=== PATIENT | female | born 1985 | race American Indian/Alaskan Native ===

== ENCOUNTER 2018-04-03 17:49 | Emergency (ER) | payer MEDICAID ==
[2018-04-03 18:33] VITALS: BP 129/74
[2018-04-03] MEDS ORDERED: cefTRIAXone 250 MG, Lidocaine 1% 0.9 ML IM ONE ×2 (20:12)
[2018-04-03] MEDS ORDERED: Azithromycin 250 MG Tab PO ONE (20:12)
--- NOTE | 2018-04-03 20:25 | EDM.PDOC ---
ED HPI GENERAL MEDICAL PROBLEM - General Chief Complaint: Back Pain or Injury Stated Complaint: [id number]- FELL DOWN STAIRS- URINATING BLOOD Time Seen by Provider: 04/03/18 19:10 Source of Information: Reports: Patient History Limitations: Reports: No Limitations - History of Present Illness INITIAL COMMENTS - FREE TEXT/NARRATIVE: C/o pain to buttocks, Has had burning with urination and thought noticed blood in urine. No numbness. No loss of bowel or bladder control. 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 LMP May 23 Social & Family History - Tobacco Use Smoking Status *Q: Never Smoker - Recreational Drug Use Recreational Drug Use: No - Living Situation & Occupation Living situation: Reports: , with Family ED ROS GENERAL - Review of Systems Review Of Systems: ROS reveals no pertinent complaints other than HPI. ED EXAM,LOWER BACK PAIN/INJURY - Physical Exam Exam: See Below Exam Limited By: No Limitations General Appearance: Alert, Mild Distress Eye Exam: Bilateral Eye: EOMI Ears: Normal External Exam Nose: Normal Inspection Throat/Mouth: Normal Inspection Head: Atraumatic, Normocephalic Neck: Normal Inspection Respiratory/Chest: No Respiratory Distress, Lungs Clear, Normal Breath Sounds Cardiovascular: Normal Peripheral Pulses, Regular Rate, Rhythm GI/Abdominal: Soft Back Exam: Full Range of Motion, Other (tender coccyx. ) Extremities: Normal Range of Motion Neurological: Alert, Oriented x 3 Skin Exam: Warm, Dry Course - Vital Signs Last Recorded V/S: Last Vital Signs Temp 98.8 F 04/03/18 18:32 Pulse 18 L 04/03/18 18:32 Resp 18 04/03/18 18:32 BP 129/74 04/03/18 18:32 Pulse Ox 99 04/03/18 18:32 - Orders/Labs/Meds Orders: Active Orders 24 hr Category Date Time Status CHLAMYDIA AND GONORRHEA BY [facility] Routine Lab 04/03/18 18:36 Received Labs: Laboratory Tests 04/03/18 Range/Units 18:32 Urine Color Dark yellow (YELLOW) Urine Appearance Cloudy (CLEAR) Urine pH 7.0 (5.0-9.0) Ur Specific [place] 1.025 (1.005-1.030) Urine Protein 30 H (NEGATIVE) Urine Glucose (UA) Negative (NEGATIVE) Urine Ketones Negative (NEGATIVE) Urine Occult Blood Negative (NEGATIVE) Urine Nitrite Negative (NEGATIVE) Urine Bilirubin Negative (NEGATIVE) Urine Urobilinogen 0.2 (0.2-1.0) mg/dL Ur Leukocyte Esterase Negative (NEGATIVE) Urine RBC 0-5 /HPF Urine WBC 5-10 H (0-5/HPF) /HPF Ur Epithelial Cells Many H /HPF Urine Bacteria Many H (0-FEW/HPF) /HPF Urine Other See note Urine Trichomonas Present H (0/HPF) /HPF Meds: Medications Discontinued Medications Generic Name Dose Route Start Last Admin Trade Name Jonesq PRN Reason Stop Dose Admin Azithromycin 1,000 mg 04/03/18 20:12 04/03/18 20:31 Zithromax PO 04/03/18 20:13 1,000 mg ONETIME ONE Administration Ceftriaxone Sodium 250 mg/ 0 mg 04/03/18 20:12 04/03/18 20:30 Lidocaine HCl 0.9 ml IM 04/03/18 20:13 250 inj ONETIME ONE Administration Departure - Departure Time of Disposition: 20:20 Disposition: Home, Self-Care 01 Condition: Good Clinical Impression: BV (bacterial vaginosis), Trichimoniasis Tailbone injury Qualifiers: Encounter type: initial encounter Qualified Code(s): S39.92XA - Unspecified injury of lower back, initial encounter - Discharge Information Instructions: Bacterial Vaginosis, Tailbone Injury, [id number] Referrals: Karol Garcia NP [Primary Care Provider] - Forms: ED Department Discharge Additional Instructions: avoid direct sitting on tailbone urgent follow up if weakness or loss of control of laisha or bladder increase fluid intake ibuprofen 600mg every 6 hours as needed may alternate with tylenol flagyl 2 gram one time dose recheck in one month sooner if worsening symptoms - My Orders Last 24 Hours: My Active Orders 04/03/18 18:36 CHLAMYDIA AND GONORRHEA BY [facility] Routine - Assessment/Plan Last 24 Hours: My Active Orders 04/03/18 18:36 CHLAMYDIA AND GONORRHEA BY [facility] Routine
== END 2018-04-03 20:46 | disposition home or self-care (01) ==
LOC: DL.ED 17:49
DX: S39.92XA Unspecified injury of lower back, initial encounter (principal); A59.01 Trichomonal vulvovaginitis; N76.0 Acute vaginitis; Z88.1 Allergy status to other antibiotic agents; Z88.5 Allergy status to narcotic agent; Z88.0 Allergy status to penicillin; W10.9XXA Fall (on) (from) unspecified stairs and steps, initial encounter
CPT/HCPCS: 81001; 87491; 87591; 96372; 99283; A9270; J0696

== ENCOUNTER 2024-05-14 18:52 | Emergency (ER) | payer BC, MEDICAID, OTHER ==
[~2024-05-14 18:52] MED LIST: Morphine 4 MG/ML Syringe IVPUSH ONE; Ondansetron 4 MG/2 ML SDV IVPUSH ONE; Sodium Chloride 0.9% 10 ML Syringe FLUSH PRN; ceFAZolin 2 GM Vial IVPUSH ONE
[2024-05-14] MEDS ORDERED: Ondansetron 4 MG/2 ML SDV IV ONE (18:53)
[2024-05-14] MEDS ORDERED: Ondansetron 4 MG/2 ML SDV ONE (18:53)
[2024-05-14] MEDS ORDERED: Morphine 4 MG/ML Syringe ONE (18:53)
[2024-05-14] MEDS ORDERED: Ketorolac 30 MG/ML SDV IVPUSH ONE (18:53)
[2024-05-14] MEDS ORDERED: Ropivacaine 100 ML EPIDUR ONE (18:53)
[2024-05-14] MEDS ORDERED: Morphine 4 MG/ML Syringe IV ONE (18:53)
[2024-05-14] MEDS ORDERED: Propofol 200 MG/20 ML SDV IV ONE (18:53)
[2024-05-14] MEDS ORDERED: Sodium Chloride 0.9% 10 ML Syringe IV ONE (18:53)
[2024-05-14] MEDS ORDERED: Sodium Chloride 0.9% 1,000 ML IV SCH ×2 (19:00→22:30)
[2024-05-14 19:01] LABS: BASOPHILS PERCENT AUTO 0.3 % (0.0-1.0); EOSINOPHILS PERCENT AUTO 1.5 % (1.0-3.0); HEMATOCRIT 42.4 % (37.0-47.0); HEMOGLOBIN 14.5 g/dL (12.0-16.0); LYMPHOCYTES PERCENT AUTO 18.7 % (20.5-50.1); MEAN CORPUSCULAR HEMOGLOBIN 30.9 pg (27.0-34.0); MEAN CORPUSCULAR HGB CONC 34.2 g/dL (33.0-35.0); MEAN CORPUSCULAR VOLUME 90.4 fL (80-100); MONOCYTES PERCENT AUTO 6.4 % (2-8); NEUTROPHILS PERCENT AUTO 73.1 % (42.2-75.2); PLATELET COUNT,PLT 339 10^3/uL (150-450); RED BLOOD CELL COUNT 4.69 10^6/uL (4.2-5.4); WHITE BLOOD CELL COUNT,WBC 8.8 10^3/uL (5.0-10.0)
[2024-05-14 19:16] LABS: INR 0.9 (0.9-1.2); PROTHROMBIN TIME 9.1 SEC (9.0-12.0)
[2024-05-14 19:21] LABS: A/G RATIO 1.3; ALANINE AMINOTRANSFERASE,ALT 21 U/L (14-59); ALBUMIN 3.7 g/dL (3.4-5.0); ALKALINE PHOSPHATASE 59 U/L (46-116); ANION GAP 9.3 mEq/L (7-13); ASPARTATE AMNIOTRANSFERASE,AST 15 U/L (15-37); BILIRUBIN TOTAL 0.2 mg/dL (0.2-1.0); BLOOD UREA NITROGEN,BUN 12 mg/dL (7-18); BUN/CREATININE RATIO 15.4 (No establ ref range); CALCIUM 8.9 mg/dL (8.5-10.1); CARBON DIOXIDE,CO2 29 mmol/L (21-32); CHLORIDE,CL 107 mmol/L (98-107); CREATININE 0.78 mg/dL (0.55-1.02); ESTIMATED GFR 99 mL/min (>=60); ETHANOL BLOOD MEDICAL < 3 mg/dL (0); GLUCOSE RANDOM 122 mg/dL (70-99); MAGNESIUM 1.9 mg/dL (1.8-2.4); POTASSIUM,K 3.3 mmol/L (3.5-5.1); PROTEIN TOTAL,TP 6.5 g/dL (6.4-8.2); SODIUM,NA 142 mmol/L (136-145)
[2024-05-14] MEDS ORDERED: Bacitracin/Neomycin/Polymyxin B Oint 28.4 GM Tube ONE (19:38)
[2024-05-14] MEDS: Iopamidol 612 MG/ML 100 ML Bottle IVPUSH ONE (19:39)
[2024-05-14 21:11] LABS: AMPHETAMINES,URINE POSITIVE (NEGATIVE); BARBITURATES,URINE NEGATIVE (NEGATIVE); BENZODIAZEPINE,URINE NEGATIVE (NEGATIVE); MDMA (ECSTASY), URINE NEGATIVE (NEGATIVE); METHADONE,URINE NEGATIVE (NEGATIVE); METHAMPHETAMINES,URINE NEGATIVE (NEGATIVE); OPIATES,URINE POSITIVE (NEGATIVE); OXYCODONE,URINE NEGATIVE (NEGATIVE); PHENCYCLIDINE,URINE NEGATIVE (NEGATIVE); TCA,URINE NEGATIVE (NEGATIVE)
[2024-05-14] MEDS: Diphtheria,Pertussis(Acell),Tetanus Vaccine 0.5 ML Syringe IM ONE (22:04)
== END 2024-05-14 22:56 ==
LOC: DL.ED 18:52
DX: S82.841A Displaced bimalleolar fracture of right lower leg, initial encounter for closed fracture (principal); Z88.0 Allergy status to penicillin; Z88.2 Allergy status to sulfonamides; X58.XXXA Exposure to other specified factors, initial encounter
CPT/HCPCS: 27810; 36415; 70450; 71260; 72125; 73090; 73120; 73552; 73590; 73600; 73610; 73620; 74177; 80053; 80305; 80307; 83735; 85025; 85610; 90471; 90715; 96361; 96374; 96375; 99152; 99285; A9270; J1885; J2270; J2405; J2704; J2795; Q9967; 01462; 99291; J3490